=== PATIENT | female | born 2000 | race African-American/Black ===

== ENCOUNTER 2021-04-14 17:03 | Outpatient (CLI) ==
[~2021-04-14] VITALS: Ht 170.2 cm; Wt 102.4 kg
[2021-04-14 17:32] VITALS: BP 100/53
[2021-04-14] MEDS ORDERED: ALBU8.5H INH (17:43)
[2021-04-14] MEDS ORDERED: PRENTAB9 PO (17:43)
--- NOTE | 2021-04-14 19:28 | IPNPDOC ---
Text Note Date of Service The patient was seen on 04/14/21. NOTE HPI: Mrs. Raquel Nguyen is a 23-year-old G1 at 30w2d ega, by LMP consistent with first trimester ultrasound, with PNC c/b Asthma, GBS Positive Urine Culture who presents to triage to rule-out labor. Mrs. Nguyen presents reporting an hour long history of irregular, sharp, stabbing bilateral lower abdominal discomfort. + Radiation to her bilateral flanks. At its worse, the pains are quantified as 6/10. They start and stop quickly. No exacerbating or relieving factors have been identified. The patient reports active movement and denies any leakage of fluid or vaginal bleeding. She denies having sexual intercourse or vaginal exams over the past 24-hours. Denies dysuria/urinary frequency/hematuria, vaginal itching/burning sensations, vaginal discharge, or fevers/chills. Past Medical History: - Asthma. - Seasonal Allergies. - GBS + Urine Culture. Past Surgical History: - Negative. Medications: - vitamins. - Claritin. - Albuterol, prn. Allergies: - No Known Drug Allergies. OB History: - G1: current partner, spontaneous conception. [employer] SUPERINTENDENT History: - No history of cervical cervical conization. Her cerclage. Social History: - - [employer] - Denies alcohol, tobacco and illicit drugs. PHYSICAL EXAMINATION Vital signs: normotensive, afebrile. General: Awake, alert and oriented 3; No apparent distress. Abdomen: Gravid, soft, nondistended, nontender to palpation. Back: No CVA tenderness Lower Extremities: no clubbing, cyanosis or edema. Sterile Speculum Exam: cervix was visibly closed, with no vaginal bleeding or pooling of fluid. fibronectin was collected. Greenish/yellow discharge noted within the vault SVE: Closed/long/high. NST: Baseline 130 bpm, moderate variability, positive accelerations, occasional variable decelerations, reassuring NST. [place]: No uterine contractions. Transvaginal ultrasound: Cervical length 4.59cm Labs: UA: Negative Leukocyte Esterase; Negative Nitrites; Negative Ketones; + Urine Bacteria UCx: Pending HERIBERTO: No budding hyphae or yeast Wet Prep: Multiple clue cells, no Trichomonas present. Assessment: 23-year-old 1 at 30w2d ega, who was found not to be in labor. There was evidence of vaginitis & possible UTI. Will initiate treatment for both. Plan: Flagyl (metronidazole) 500 mg by mouth twice a day 7 days for bacterial vaginosis. - Macrobid (nitrofurantoin) 100mg by mouth twice a day x5-days for presumed UTI. Patient is to follow-up at her next regularly scheduled OB appointment. - Return precautions were reviewed with the couple All questions answered. 30 minutes spent in counseling. Jennyfer Gaffney M.D., PhD [employer] staff VS,[place], I+O VS, [place] I+O Vital Signs Date Time Temp Pulse Resp B/P (MAP) Pulse Ox O2 Delivery O2 Flow Rate FiO2 04/14/21 17:32 98.3 100 18 100/53 (69) PAOLA GAFFNEY M.D. Apr 14, 2021 19:28
== END 2021-04-14 20:00 | disposition home or self-care (01) ==
LOC: M LDO 17:03
PROVIDERS: ATTEND Obstetrics & Gynecology Reproductive Endocrinology
DX: O47.03 False labor before 37 completed weeks of gestation, third trimester (principal); Z3A.30 30 weeks gestation of pregnancy; O99.820 Streptococcus B carrier state complicating pregnancy; O23.43 Unspecified infection of urinary tract in pregnancy, third trimester; O99.513 Diseases of the respiratory system complicating pregnancy, third trimester; J45.909 Unspecified asthma, uncomplicated
CPT/HCPCS: 59025; 81001; G0378; G0463

== ENCOUNTER 2021-06-17 18:46 | Inpatient (IN) | payer OTHER ==
[2021-06-17] VITALS (8 sets, daily range): BP systolic 127–152; BP diastolic 63–91
[~2021-06-17] VITALS: Ht 170.2 cm; Wt 109.5 kg
[~2021-06-17 18:46] MED LIST: ALBU8.5H INH; PRENTAB9 PO
[2021-06-17] MEDS ORDERED: LORA-674 PO (19:08)
[2021-06-17] MEDS ORDERED: FERR325T3 PO (19:08)
[2021-06-17] MEDS ORDERED: LACTATED RINGER'S 1000 ML IV STA (20:40)
[2021-06-17] MEDS ORDERED: OXYTOCIN INJ 10 UNITS/ML VIAL (J2590) IV PRN (20:40)
[2021-06-17] MEDS ORDERED: LIDOCAINE 1% MDV 20ML VIAL INFIL PRN (20:40)
[2021-06-17] MEDS ORDERED: OXYTOCIN DRIP 30 UNITS in IV 1 EA IV SCH (20:40)
[2021-06-17] MEDS ORDERED: PENICILLIN G POTASSIUM IV 5 MU in D5W MINI-BAG PLUS 100 ML IV STA (20:40)
[2021-06-17] MEDS ORDERED: OXYTOCIN DRIP 30 UNITS in IV 1 EA IV PRN (20:40)
[2021-06-17] MEDS ORDERED: **PENDING PCN ENTRY XX SCH (21:00)
[2021-06-17 21:45] LABS: HEMATOCRIT 36.9 % (36.0-47.0); HEMOGLOBIN 12.8 g/dl (12.0-15.5); MEAN CORPUSCULAR HEMOGLOBIN 32.1 pg (27.0-33.0); MEAN CORPUSCULAR HGB CONC 34.7 g/dl (32.0-36.5); MEAN CORPUSCULAR VOLUME 92.5 fl (80.0-96.0); PLATELET COUNT, AUTOMATED 335 10^3/uL (150-450); RED BLOOD COUNT 3.99 10^6/uL (4.00-5.40); WHITE BLOOD COUNT 9.3 10^3/uL (4.0-10.0)
[2021-06-17 22:06] LABS: ALT/SGPT 20 U/L (12-78); BILIRUBIN,TOTAL 0.2 MG/DL (0.2-1.0); CREATININE FOR GFR 0.43 MG/DL (0.55-1.30); LDH LACTATE DEHYDROGENASE 217 U/L (84-246); URIC ACID 2.8 MG/DL (2.6-6.0)
[2021-06-18] VITALS (25 sets, daily range): BP systolic 99–158; BP diastolic 50–78
[2021-06-18] MEDS ORDERED: FENTANYL 2MCG/ML ROPIVACAINE 0.2% IN 0.9% NACL 100ML IVBAG As Ordered ONE (00:15)
[2021-06-18] MEDS ORDERED: PENICILLIN G POTASSIUM IV 2.5 MU in IV 1 EA IV SCH (00:40)
[2021-06-18] MEDS ORDERED: FENTANYL/ROPIVACAINE/NACL BAG 100 ML EPIDURAL SCH (01:55)
[2021-06-18] MEDS ORDERED: REFRIGERATOR IV KEYS XX PRN (01:55)
[2021-06-18] MEDS ORDERED: EPIDURAL/PCA KEYS XX PRN (01:55)
[2021-06-18] MEDS ORDERED: LACTATED RINGER'S 1000 ML IV PRN (01:55)
[2021-06-18] MEDS ORDERED: ONDANSETRON 4MG/2ML VIAL IV PRN (01:55)
[2021-06-18] MEDS ORDERED: EPIDURAL COMMENT XX SCH (01:55)
[2021-06-18] MEDS ORDERED: ePHEDrine SULFATE 25 MG/5 ML(5MG/ML) SYRINGE IV PRN (01:55)
[2021-06-18] MEDS ORDERED: diphenhydrAMINE 50MG/ML VIAL (J1200) IV PRN (01:55)
[2021-06-18] MEDS ORDERED: NALOXONE INJ 0.4MG/1ML VIAL (J2310 PER 1MG) IV PRN (01:55)
[2021-06-18] MEDS: PENICILLIN G POTASSIUM IV 2.5 MU in IV 1 EA IV SCH ×2 (02:22→06:03)
[2021-06-18] MEDS ORDERED: LR 1,000 ML IV SCH (05:35)
[2021-06-18] MEDS ORDERED: METHYLERGONOVINE MALEATE 0.2 MG TAB PO PRN (10:30)
[2021-06-18] MEDS ORDERED: DIBUCAINE 1% OINTMENT 30GM TOP PRN (10:30)
[2021-06-18] MEDS ORDERED: ACETAMINOPHEN TAB 650MG DOSE (2X325MG) PO PRN (10:30)
[2021-06-18] MEDS ORDERED: OXYTOCIN DRIP 30 UNITS in IV 1 EA IV SCH (10:30)
[2021-06-18] MEDS ORDERED: IBUPROFEN 600MG TAB PO PRN (10:30)
[2021-06-18] MEDS ORDERED: IBUPROFEN 800 MG TAB PO PRN (10:30)
[2021-06-18] MEDS: DOCUSATE SODIUM 100MG CAPSULE PO SCH (20:04)
[2021-06-18] MEDS: ACETAMINOPHEN 500 MG TAB PO PRN (21:57)
[2021-06-19 06:03] VITALS: BP 103/59
[2021-06-19] MEDS: PRENATAL VITAMINS CHEWABLE TABLET PO SCH (08:35)
[2021-06-19] MEDS: FERROUS SULFATE 325MG TAB PO SCH (08:35)
[2021-06-19] MEDS: DOCUSATE SODIUM 100MG CAPSULE PO SCH ×2 (08:36→19:21)
[2021-06-19 17:54] VITALS: BP 145/66
[2021-06-19] MEDS: ACETAMINOPHEN 500 MG TAB PO PRN (19:21)
[2021-06-20] MEDS: ACETAMINOPHEN 500 MG TAB PO PRN (05:08)
[2021-06-20 05:53] VITALS: BP 112/54
[2021-06-20] MEDS: FERROUS SULFATE 325MG TAB PO SCH (09:30)
[2021-06-20] MEDS: DOCUSATE SODIUM 100MG CAPSULE PO SCH (09:30)
[2021-06-20] MEDS: PRENATAL VITAMINS CHEWABLE TABLET PO SCH (09:31)
== END 2021-06-20 11:30 | disposition home or self-care (01) | DRG 807 ==
LOC: M LDO 18:46 → M LDI 20:26 → M OBS 06-18 11:40
PROVIDERS: ADMIT Obstetrics & Gynecology; ATTEND Obstetrics & Gynecology
PROC: 0HQ9XZZ Repair Perineum Skin, External Approach (ICD-10-PCS; 2021-06-17)
PROC: 3E033VJ Introduction of Other Hormone into Peripheral Vein, Percutaneous Approach (ICD-10-PCS; 2021-06-17)
PROC: 10E0XZZ Delivery of Products of Conception, External Approach (ICD-10-PCS; principal; 2021-06-18)
PROC: 10907ZC Drainage of Amniotic Fluid, Therapeutic from Products of Conception, Via Natural or Artificial Opening (ICD-10-PCS; 2021-06-18)
DX: O13.4 Gestational [pregnancy-induced] hypertension without significant proteinuria, complicating childbirth (principal); Z37.0 Single live birth; O99.52 Diseases of the respiratory system complicating childbirth; Z3A.39 39 weeks gestation of pregnancy; O99.824 Streptococcus B carrier state complicating childbirth; O70.0 First degree perineal laceration during delivery; J45.909 Unspecified asthma, uncomplicated; O26.03 Excessive weight gain in pregnancy, third trimester

== ENCOUNTER 2021-08-21 19:49 | Emergency (ER) | payer OTHER ==
[~2021-08-21] VITALS: Ht 170.2 cm; Wt 94.1 kg
[~2021-08-21 19:49] MED LIST changes: +FERR325T3 PO; +LORA-674 PO
[2021-08-21 19:51] VITALS: BP 135/92
== END 2021-08-21 22:56 | disposition left against medical advice (07) ==
LOC: M ED 19:49
DX: Z53.29 Procedure and treatment not carried out because of patient's decision for other reasons (principal)

== ENCOUNTER → 2021-09-16 | Outpatient (CLI) | payer OTHER ==
--- NOTE | 2021-09-16 11:56 | PFTRPT ---
Site: [facility], [address] [place] [address], [id number] ID: [id number] Name: KAAY VASQUEZ Visit Date: 09/16/2021 Second ID: [id number] Referring Doctor: Mckenna Amin Reviewing Doctor: Torin Rosario MD Track Welder: John MORTENSEN RRT Age: 21 : 2000 Sex: Female Race: Black Height: 67.00 Inches Weight: 207.00 Lbs BSA: 2.05 Order IDs: [id number] Requested Test(s): <RESP-PFT.PFT B/A> Diagnosis: R06.02 test meet the ATS standards for acceptability and repeatability. Pt was given four puffs of albuterol for post bronchodilator. Review Status: Not Reviewed Pre-Bronch Post-Bronch Pred Actual %Pred Actual %Chng SPIROMETRY FVC (L) 3.64 4.19 115 4.48 6 FEV1 (L) 3.19 2.96 92 3.72 25 FEV1/FVC (%) 88 71 80 83 17 FEF 25% (L/sec) 6.25 4.56 72 8.22 80 FEF 50% (L/sec) 4.78 2.52 52 5.26 109 FEF 75% (L/sec) 2.13 1.03 48 2.17 110 FEF 25-75% (L/sec) 3.80 2.14 56 4.46 108 FEF Max (L/sec) 7.43 6.76 90 8.47 25 FIVC (L) 4.06 4.19 3 FIF 50% (L/sec) 4.57 5.88 128 7.50 27 FIF Max (L/sec) 5.88 7.50 27 MVV (L/min) 120 83 69 Expiratory Time (sec) 6.54 6.39 -2 Back Extrap Vol (L) 0.09 0.13 33 Time To FEFmax (sec) 0.097 0.092 -4 LUNG VOLUMES SVC (L) 4.16 4.22 101 IC (L) 2.49 3.09 124 ERV (L) 1.67 1.13 67 TGV (L) 3.01 2.59 86 RV (Pleth) (L) 1.34 1.46 109 TLC (Pleth) (L) 5.50 5.68 103 RV/TLC (Pleth) (%) 23 26 111 DIFFUSION DLCOunc (ml/min/mmHg) 27.27 32.13 117 DLCOcor (ml/min/mmHg) 27.27 32.33 118 DL/VA (ml/min/mmHg/L) 4.96 6.13 123 VA (L) 5.50 5.27 95 BHT (sec) 9.93 IVC (L) 4.21 TLC (SB) (L) 5.42 AIRWAYS RESISTANCE Raw (cmH2O/L/s) 1.86 0.98 52 Gaw (L/s/cmH2O) 1.03 1.02 99 sRaw (cmH2O*s) 4.76 2.79 58 sGaw (1/cmH2O*s) 0.20 0.36 179 BLOOD GASES Hgb (gm/dL) 13.2
== END ==
LOC: M CARPUL 11:17
PROVIDERS: ATTEND Nurse Practitioner Adult Health
DX: R06.02 Shortness of breath (principal)

== ENCOUNTER → 2022-06-16 | Outpatient (REF) | payer OTHER ==
[2022-06-16 17:50] LABS: BASO % 0.9 % (0.0-1.0); EOS # 0.3 10^3/uL (0.0-0.5); HEMATOCRIT 39.3 % (36.0-47.0); HEMOGLOBIN 12.8 g/dl (12.0-15.5); LYMPH % 43.9 % (24.0-44.0); MEAN CORPUSCULAR HEMOGLOBIN 29.4 pg (27.0-33.0); MEAN CORPUSCULAR HGB CONC 32.6 g/dl (32.0-36.5); MEAN CORPUSCULAR VOLUME 90.1 fl (80.0-96.0); MONO # 0.4 10^3/uL (0.0-0.8); MONO % 7.6 % (2.0-8.0); NEUTROPHILS # 1.9 10^3/uL (1.5-8.5); NEUTROPHILS % 40.4 % (36.0-66.0); PLATELET COUNT, AUTOMATED 367 10^3/uL (150-450); RED BLOOD COUNT 4.36 10^6/uL (4.00-5.40); WHITE BLOOD COUNT 4.6 10^3/uL (4.0-10.0)
== END ==
LOC: M LAB REF 17:02
PROVIDERS: ATTEND Nurse Practitioner Adult Health
DX: J45.40 Moderate persistent asthma, uncomplicated (principal)